=== PATIENT | male | born 2005 | race Caucasian/White ===

== ENCOUNTER 2025-06-11 07:21 | Emergency (ER) | payer OTHER ==
[~2025-06-11] VITALS: Ht 170.2 cm; Wt 72.7 kg
[2025-06-11 07:22] VITALS: TEMP 98.2
[2025-06-11] MEDS: ACETAMINOPHEN 500 MG TABLET PO ONE (07:43)
[2025-06-11] MEDS ORDERED: SODIUM CHLORIDE 0.9% 100 ML ONE (07:50)
[2025-06-11] MEDS ORDERED: IOHEXOL 350 MG/ML 100 ML VIAL ONE (07:50)
[2025-06-11 07:51] LABS: PLATELET COUNT (AUTO) 190 K/uL (150-450); RED BLOOD CELL COUNT(AUTO) 5.71 MIL/uL (4.50-5.90); RED CELL DISTRIBUTION WIDTH 13.4 % (11.5-14.5); WHITE BLOOD COUNT (AUTO) 5.2 K/uL (4.5-11.0)
[2025-06-11] MEDS: FAMOTIDINE 20 MG/2 ML VIAL IVP ONE (07:53)
[2025-06-11] MEDS: ONDANSETRON HCL 4 MG/2 ML VIAL IVP ONE (07:54)
[2025-06-11 07:58] LABS: CALCIUM, TOTAL 8.7 mg/dL (8.8-10.5); CREATININE 0.96 mg/dL (0.60-1.30); GLOMERULAR FILTR. RATE CALC > 60 mL/min (>60); GLUCOSE,RANDOM 104 mg/dL (70-110); SODIUM SERUM 139 mmol/L (136-145); UREA NITROGEN, BLOOD 14 mg/dL (7-18)
[2025-06-11] MEDS: SODIUM CHLORIDE 0.9% 1,000 ML IV ONE (09:26)
[2025-06-11] MEDS: KETOROLAC TROMETHAMINE 30 MG/ML VIAL IVP ONE (09:26)
[2025-06-11] MEDS: MORPHINE SULFATE 2 MG/ML SYRINGE IVP ONE (09:27)
[2025-06-11 09:53] LABS: ASPARTATE AMINOTRANSFERASE 24.0 U/L (15-37); TOTAL PROTEIN, SERUM 7.3 g/dL (6.4-8.2)
[2025-06-11 09:59] LABS: APPEARANCE,URINE CLEAR (CLEAR); GLUCOSE, URINE (UA) NEGATIVE (NEGATIVE); LEUKOCYTE ESTERASE ,URINE NEGATIVE (NEGATIVE); NITRATE,URINE NEGATIVE (NEGATIVE); OCCULT BLOOD,URINE LARGE (NEGATIVE)
[2025-06-11 10:00] VITALS: BP 132/66; PULSE 65; RESP 16; O2SAT 100
[2025-06-11 10:02] LABS: SPECIFIC GRAVITIY, URINE > 1.030 (1.003-1.030)
[2025-06-11] MEDS ORDERED: CEPH-558 PO (10:16)
[2025-06-11] MEDS ORDERED: IBUP-1492 PO (10:16)
[2025-06-11] MEDS ORDERED: ACET-3385 PO (10:16)
[2025-06-11] MEDS: CEPHALEXIN MONOHYDRATE 500 MG CAPSULE PO ONE (10:26)
== END 2025-06-11 10:56 | disposition home or self-care (01) ==
LOC: EMS 07:25
DX: N13.2 Hydronephrosis with renal and ureteral calculous obstruction (principal); R10.31 Right lower quadrant pain
CPT/HCPCS: 99285; 74177; 96374; 96375; 96361; 80048; 80076; 81001; 83690; 85025; 87086; 36415; J1885; Q9967; J3490; J2270; J2405; J7030; J7050